=== PATIENT | male | born 1960 | race Caucasian/White ===

== ENCOUNTER 2017-09-08 16:30 | Emergency (ER) | payer SELFPAY ==
[~2017-09-08 16:30] MED LIST: ISOVUE-370 76%-LOCM 1 ML ONE
[2017-09-08 17:46] LABS: Hemoglobin 14.6 g/dL (14.0-18.0); Mean Corpuscular HGB CONC 33.6 g/dL (32.0-36.0); Mean Platelet Volume 8.3 fL (7.4-10.4); Platelet Count 141 thou/uL (130-400); RBC Distribution Width 13.1 % (11.5-14.5); Red Blood Cell (RBC) Count 4.44 mill/uL (4.70-6.10); White Blood Cell (WBC) Count 9.4 thou/uL (4.8-10.8)
[2017-09-08 17:47] LABS: INR-International Normal Ratio 1.1; PTT 28.3 SEC (22.9-36.1); Prothrombin Time 14.6 SEC (12.0-14.7)
[2017-09-08 18:03] LABS: ALT (SGPT) 200 U/L (8-55); AST (SGOT) 162 U/L (5-34); Albumin 3.9 g/dL (3.5-5.0); Alcohol 239 mg/dL (Less than 10); Alkaline Phosphatase 66 U/L (40-150); Anion Gap 16 mmol/L (10-20); BUN (Urea Nitrogen) 17 mg/dL (8.4-25.7); Bilirubin, Total 0.7 mg/dL (0.2-1.2); Calc. Creatinine Clearance 0 mL/min (70-130); Calcium 8.8 mg/dL (7.8-10.44); Carbon Dioxide 21 mmol/L (22-29); Chloride 107 mmol/L (98-107); Estimated GFR-MDRD Greater than 90; Globulin 3.6 g/dL (2.4-3.5); Glucose 84 mg/dL (70-105); Lipase 51 U/L (8-78); Potassium 3.7 mmol/L (3.5-5.1); Protein, Total 7.5 g/dL (6.0-8.3); Sodium 140 mmol/L (136-145)
[2017-09-08 18:04] LABS: Lymphocytes 72 % (21-51); MDiff Complete? YES; Macrocytosis SLIGHT = 6-15 cells (100X) (0-5/hpf); Monocytes 4 % (0-10); Neutrophil 19 % (42-75); PLT Morphology Comment Appears Adequate; Reactive Lymphocytes 5 % (0-10)
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
== END 2017-09-08 20:30 | disposition home or self-care (01) ==
LOC: ERS 16:30
DX: S02.2XXA Fracture of nasal bones, initial encounter for closed fracture (principal); S13.161A Dislocation of C5/C6 cervical vertebrae, initial encounter; S60.812A Abrasion of left wrist, initial encounter; S60.811A Abrasion of right wrist, initial encounter; F10.129 Alcohol abuse with intoxication, unspecified; F17.210 Nicotine dependence, cigarettes, uncomplicated; Y04.0XXA Assault by unarmed brawl or fight, initial encounter
CPT/HCPCS: 36415; 70450; 70486; 71260; 72125; 74177; 80053; 80307; 83690; 85025; 85610; 85730; 86850; 86900; 86901; 99406

== ENCOUNTER 2020-01-09 01:15 | Inpatient (IN) | payer OTHER, SELFPAY ==
[2020-01-09 01:57] LABS: #Basophils 0.1 thou/uL (0.0-0.2); #Eosinphils 0.2 thou/uL (0.0-0.7); #Lymphocytes 4.4 thou/uL (1.20-3.40); #Monocytes 1.5 thou/uL (0.11-0.59); #Neutrophils 5.3 thou/uL (1.40-6.50); %Basophils 1.1 % (0.0-1.0); %Eosinophils 1.3 % (0.0-10.0); %Lymphocytes 38.1 % (21.0-51.0); %Neutrophils 46.5 % (42.0-75.0); Hemoglobin 6.3 g/dL (14.0-18.0); Mean Corpuscular Volume 82.8 fL (78.0-98.0); Platelet Count 200 thou/uL (130-400); RBC Distribution Width 18.7 % (11.5-14.5); Red Blood Cell (RBC) Count 2.62 mill/uL (4.70-6.10); White Blood Cell (WBC) Count 11.4 thou/uL (4.8-10.8)
[2020-01-09 02:10] LABS: ALT (SGPT) 19 U/L (8-55); AST (SGOT) 43 U/L (5-34); Albumin 2.4 g/dL (3.5-5.0); Alcohol Less than 10 mg/dL (Less than 10); Alkaline Phosphatase 81 U/L (40-110); Anion Gap 12 mmol/L (10-20); BUN (Urea Nitrogen) 12 mg/dL (8.4-25.7); Bilirubin, Total 1.5 mg/dL (0.2-1.2); CK (CPK) 95 U/L (30-200); Calc. Creatinine Clearance 0 mL/min (70-130); Calcium 7.2 mg/dL (7.8-10.44); Carbon Dioxide 18 mmol/L (22-29); Chloride 105 mmol/L (98-107); Estimated GFR-MDRD Greater than 90; Globulin 4.1 g/dL (2.4-3.5); Glucose 106 mg/dL (70-105); Lipase 391 U/L (8-78); Potassium 3.9 mmol/L (3.5-5.1); Protein, Total 6.5 g/dL (6.0-8.3); Sodium 131 mmol/L (136-145)
[2020-01-09 02:21] LABS: INR-International Normal Ratio 1.7; PTT 29.2 sec (22.9-36.1)
--- NOTE | 2020-01-09 02:29 | PDOC.FPRHP ---
- History of Present Illness Chief Complaint: chest pain History of Present Illness: Pt is a 60 yo male with hx of EtOH and tobacco abuse who presents to ED with CP. Pain started around 9pm on 01/07. Described as "like a brick on my chest", located in center of chest and radiated to arms, started at rest, relieved by nitro paste given by EMS. Associated with nausea and SOB. Had one episode of similar pain a couple of weeks ago. Does not have a PCP and hasn't been to doctor in "years". C/o abdominal distention. This has gotten worse over past month. Social Hx: smokes 1/3ppd, has smoked since age 16 and used to smoke 1ppd. Drinks 4-6 beers/day since about 2 months ago, prior he drank 12 a day. ED Course: Given nitro paste, 325mg ASA, 1 unit pRBC - Allergies/Adverse Reactions Allergies Allergy/AdvReac Type Severity Reaction Status Date / Time No Known Allergies Allergy Unverified 01/09/20 03:26 - History PMHx: EtOH and tobacco abuse PSHx: none FHx: HTN, emphysema Social: see HPI - Review of Systems General: denies: fever/chills Eyes: denies: vision changes ENT: denies: nasal congestion Respiratory: reports: cough, shortness of breath Cardiovascular: reports: chest pain. denies: orthopnea Gastrointestinal: reports: nausea. denies: vomiting, diarrhea, abdominal pain, GI bleeding Skin: denies: rashes Musculoskeletal: denies: pain, tenderness Neurological: denies: numbness, syncope - Vital signs BP: 123/79, HR: 94, RR: 23, Temp: 98.3F, O2: 100% on RA - Physical Exam Constitutional: NAD HEENT: normocephalic and atraumatic, grossly normal vision, grossly normal hearing -HEENT: icteric sclera Neck: supple, no JVD Chest: no-tender to palpation Heart: RRR, normal S1/S2, pulses present -Heart: pitting edema of bilat LE up to knees Lungs: no respiratory distress -Lungs: wheezing bilateral lung patel -Abdomen: abdomen very distended, non-tender Neurological: no focal deficit -Skin: jaundice Psychiatric: normal mood and affect FMR H&P: Results - Labs Result Diagrams: 01/09/20 01:47 01/09/20 01:47 Lab results: WBC 11.4 thou/uL (4.8-10.8) H 01/09/20 01:47 Hgb 6.3 g/dL (14.0-18.0) L 01/09/20 01:47 Hct 21.7 % (42.0-52.0) L 01/09/20 01:47 MCV 82.8 fL (78.0-98.0) 01/09/20 01:47 Plt Count 200 thou/uL (130-400) 01/09/20 01:47 Neutrophils % 46.5 % (42.0-75.0) 01/09/20 01:47 Sodium 131 mmol/L (136-145) L 01/09/20 01:47 Potassium 3.9 mmol/L (3.5-5.1) 01/09/20 01:47 Chloride 105 mmol/L (98-107) 01/09/20 01:47 Carbon Dioxide 18 mmol/L (22-29) L 01/09/20 01:47 BUN 12 mg/dL (8.4-25.7) 01/09/20 01:47 Creatinine 0.79 mg/dL (0.7-1.3) 01/09/20 01:47 Glucose 106 mg/dL (70-105) H 01/09/20 01:47 Calcium 7.2 mg/dL (7.8-10.44) L 01/09/20 01:47 Total Bilirubin 1.5 mg/dL (0.2-1.2) H 01/09/20 01:47 AST 43 U/L (5-34) H 01/09/20 01:47 ALT 19 U/L (8-55) 01/09/20 01:47 Alkaline Phosphatase 81 U/L (40-110) 01/09/20 01:47 Creatine Kinase 95 U/L (30-200) 01/09/20 01:47 Serum Total Protein 6.5 g/dL (6.0-8.3) 01/09/20 01:47 Albumin 2.4 g/dL (3.5-5.0) L 01/09/20 01:47 Lipase 391 U/L (8-78) H 01/09/20 01:47 Laboratory Tests 01/09/20 01:47 CK-MB (CK-2) 7.6 H* Troponin I 0.964 H* FMR H&P: A/P - Plan #NSTEMI - CP at rest with SOB, hx of EtOH and tobacco abuse, no PCP - 325mg ASA given in ED - trop 0.96, will trend - ekg: no ST elevations, T wave inversions in V2 and V3, irregular rhythm - possible that CP and elevated trop could be due to inadequate oxgenation of tissue bc of severe anemia - will consult cardiology in am, NPO now - CP resolved with nitro, no JVD - VSS, continue to monitor - admit to tele #Anemia - H/H 6.3/21.7 - likely due to chronic disease process - denies diarrhea, melena, hematochezia - 1 unit pRBC ordered, repeat H/H 4 hours after #Abdominal Distention - likely due to EtOH induced chronic liver disease - PT 20, AST 43, T bili 1.5, Albumin 2.4, Na 131 - RUQ US ordered - lasix and spironolactone - fluid restrict, strict I/O's - consider paracentesis - consider GI consult #EtOH Abuse - ASE protocol - encourage cessation #Tobacco Abuse - nicotine patch - wheezing heard bilaterally, ordered duonebs - encourage cessation DVT ppx: SCDs IVF: Code: full Dispo: Admit inpatient, tele, stable, consult cards in am, LOS>48hours FMR H&P: Upper Level - Plan Date/Time: 01/09/20 0229 IAlpa MD, have evaluated this patient and agree with findings/plan as outlined by international trade analyst resident. Pertinent changes/additions are listed here. This is a 60yo M w/ hx of alcohol abuse who presents to the ER with CC of chest pain. States chest pain started at 930 pm while sitting in his living room watching TV. Described as "worst pain in life," pressure like. Radiated to neck and down both arms. Denies every having chest pain before. Endorsed nausea and SOB at the time. EMS gave Nitro paste when they arrived around 1230 am and he started to feel better. On exam in the ER he states his pain has totally resolved. He has not seen a doctor "in over 10 years." Has noticed his belly becoming more distended over the last month or so. Denies any belly pain at this time. He takes no medications. 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 He currently drinks 4 -6 beers/day, smokes 1/3 ppd. See international trade analyst note for full HPI and details. In the ER, patient given ASA. EKG showed no ST elevations. Trop found to be 0.96. Na 131. AST 43, Tbili 1.5. Lipase 391. Hgb 6.3. PE remarkable for distended abdomen, tense, tympanic, nontender. Irregular rhythm, no JVD, no TTP of ant chest. Exp wheezes on b/l lung patel. 2+ pitting edema to level of knees b/l. Will admit patient to tele, inpt for NSTEMI. Will trend troponins. No active chest pain. Nitro PRN. Will likely consult cardiology in the AM. HEART score of 6. Only given ASA for now. Holding off on anticoagulation due to anemia. FOBT pending. Likely NSTEMI due to anemia/demand. Will orally hydrate due to elevated lipase. Anemia -s/p 1 unit in the ER. Will get H/H 4hrs post transfusion. Give additional units as needed. Anemia likely 2/2 liver disease. Will get FOBT. Will get RUQ US due to elevated AST and hx of alcohol abuse. Likely need diagnostic paracentesis at some point. Will give spironolactone and furosemide to help with ascites and fluid overload. Consider GI consult. Likely has COPD - will give duonebs. Dispo: admit to tele, inpt Code: FULL PCP: [facility]OT Case to be discussed with Dr. Alvarado.
[2020-01-09 02:46] LABS: CKMB 7.6 ng/mL (0-6.6)
[2020-01-09] MEDS ORDERED: Ondansetron ODT 4 MG TAB PO PRN (03:02)
[2020-01-09] MEDS ORDERED: Ondansetron PF 4 MG/2 ML Vial IVP PRN (03:02)
[2020-01-09] MEDS ORDERED: Nitroglycerin 0.4 MG TAB (25 Tab Bottle) PO PRN (03:02)
[2020-01-09] MEDS ORDERED: Acetaminophen 325 MG TAB PO PRN (03:02)
[2020-01-09] MEDS ORDERED: Furosemide 40 MG TAB PO SCH (03:45)
[2020-01-09] MEDS ORDERED: Spironolactone 100 MG TAB PO SCH (03:45)
[2020-01-09 04:07] VITALS: BMI 25.3
[2020-01-09] MEDS: Nicotine 14 MG PATCH TD SCH (04:31)
[2020-01-09 05:12] LABS: Cardiac Risk 4.2 (Less than 4.5)
[2020-01-09 05:24] LABS: Troponin I 1.248 ng/mL (< 0.028)
[2020-01-09 05:29] LABS: HIV (1/2) Antibody/Antigen Non-Reactive (NonReactive); HIV 1/2 INDEX 0.14 S/CO (<1.00); Hep A IgM AB Non-Reactive (NonReactive); Hep A IgM S/CO 0.24 S/CO (0-0.79); Hep B Surf Ag Non-Reactive S/CO (NonReactive); Hepatitis B Core IgM Abs Non-Reactive (NonReactive)
[2020-01-09 05:39] LABS: Hep C IgG Ab Reflex HepC Qnt (NonReactive); Hep C Index 4.67 S/CO (0-0.79)
[2020-01-09 06:41] LABS: Syphilis Antibody Nonreactive (Nonreactive); Syphilis Antibody Index 0.23 S/CO (<1.00 Non-Reactive)
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
--- NOTE | 2020-01-09 07:50 | ULT ---
ULTRASOUND ABDOMEN COMPLETE: DATE: 01/09/2020 HISTORY: 60-year-old male with history of ethanol abuse presents with abdominal distention. TECHNIQUE: Grayscale ultrasound evaluation of the liver, gallbladder, spleen, pancreas, common duct, kidneys, ab dominal aorta, and inferior vena cava (IVC). FINDINGS: Moderate amount of free fluid in the abdominal cavity. Liver: lobular margins. Kidneys: No hydronephrosis. Spleen: No splenomegaly. Abdominal aorta: Obscured IVC: Not visualized. Pancreas: Mostly obscured. Gallbladder: No gallstones identified. Mural thickening up to 5 mm is nonspecific, and could be due t o liver disease, ascites, chronic cholecystitis, or acute cholecystitis. IMPRESSION: 1) moderate ascites. 2) hepatic cirrhosis.
[2020-01-09 08:01] LABS: Troponin I 1.645 ng/mL (< 0.028)
[2020-01-09] MEDS: Aspirin 325 mg Enteric Coated Tablet PO SCH (08:45)
[2020-01-09] MEDS ORDERED: Enoxaparin Sodium 80 MG/0.8 ML SYRINGE SC SCH (09:00)
[2020-01-09] MEDS ORDERED: Recombivax (HEP-B) 5 MCG/0.5 ML VIAL IM ONE (10:55)
[2020-01-09 12:06] LABS: Hemoglobin 7.6 g/dL (14.0-18.0); Reticulocyte Count 5.4 % (0.5-1.5)
[2020-01-09 12:23] LABS: Iron 21 ug/dL (65-175); Iron Binding Capacity, Total 343 mcg/dL (261-462)
[2020-01-09 12:27] LABS: Troponin I 2.215 ng/mL (< 0.028)
[2020-01-09 12:45] LABS: Ferritin 10.18 ng/mL (22-322)
[2020-01-09 14:49] LABS: Critical Call Chem Troponin I RESULT DECREASING; Troponin I 1.945 ng/mL (< 0.028)
--- NOTE | 2020-01-09 15:29 | RAD ---
TWO VIEW CHEST: 01/09/20 INDICATIONS: Follow-up portable film of 01/09/20 which described right paratracheal fullness. FINDINGS: The lungs appear clear. No infiltrate or vascular congestion. There continues to be increased density in the medial right upper lung along the paratracheal region. This overlies the first rib costochondral junction inhibiting evaluation. There is a calcified granu cedrick in the right apex which is stable. There are old rib fractures in the right apical region. Herat size is normal. There is mild blunting of the posterior gutters. IMPRESSION: Persistent density in the right paratracheal region. Suggest further evaluation with CT chest with co ntrast. POS: [facility]
--- NOTE | 2020-01-09 16:09 | CON ---
DATE OF CONSULTATION: 01/09/2020 INDICATIONS FOR CONSULTATION: This is a 60-year-old gentleman with a tsk-GZ-jsbbzgn elevation myocardial infarction. 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 He has a heavy alcohol and tobacco abuse. He has had no previous cardiac history that he is aware of. He noticed yesterday he started having chest pain while he was sitting on the sofa. He then went to bed, but then around midnight notes that the pain was worse. He became short of breath. He denied any other symptoms. He denied any radiation of the pain or any nausea or vomiting. He was seen by the EMS after he called EMS and he was given nitroglycerin. It did help the pain somewhat. He then presented here, and at approximately 2:00 a.m. this morning, his pain had resolved. His cardiac enzymes are positive for mgj-ZN-iwymdre elevation myocardial infarction. Troponin-I has increased from 1.6 up to 2.2 and his CPK-MB is 7.6, compatible with an OR and also ST-segment changes show ijg-JH-ewdfagv elevation myocardial infarction with T-wave inversions in anterior and lateral leads, compatible with ongoing ischemia likely. Unfortunately, at this moment, he also has significant cirrhosis of the liver apparently and has significant ascites. His hemoglobin was significantly decreased at 6.3. He has been given 1 unit of packed red blood cells and is now 7.6. His hematocrit was 21.7. His renal function appears to be normal. He denied any previous history of bleeding that he is aware of. He had no GI complaints of any blood in the stools, but he has not usually even evaluated the stools or pay attention and also his retic count was not significantly abnormal that would indicate bone marrow suppression. He does drink heavy amounts of alcohol. He used to drink up to 12 a day and now drinks about 4 to 6 a day. He has smoked since about age 16 up to a pack a day, is now decreased down to a 3rd of a pack a day. PAST MEDICAL HISTORY: Relatively unremarkable except for some illicit drug use and he did have some kind of GI obstruction when he was an early teenager. He had no surgical correction of this and otherwise he has had no significant illnesses or operations that he can remember. ALLERGIES: HE IS HAVING NO KNOWN ALLERGIES. ON ADMISSION, THE PATIENT HAD NOT BEEN TAKING ANY MEDICATIONS AND HAS NOT SEEN A DOCTOR FOR MANY YEARS. AT THIS TIME, HIS MEDICATIONS INCLUDE: 1. IPRATROPIUM/ALBUTEROL. 2. NICODERM PATCH. 3. ASPIRIN 325 MG A DAY, HE WAS GIVEN ONE DOSE. 4. LASIX, HE WAS GIVEN 40 MG IN THE EMERGENCY ROOM, I BELIEVE HE IS NOW BEING GIVEN P.O. LASIX 40 A DAY. 5. HE IS ALSO ON SPIRONOLACTONE 100 MG ONCE A DAY. 6. HE HAS ALSO BEEN GIVEN NITROGLYCERIN NEEDED. 7. OTHER P.R.N. MEDICATIONS. REVIEW OF SYSTEMS: A 12-point review of systems is unremarkable except what is noted in the history of present illness with recent onset of chest discomfort and also the abdominal bloating or distention for the last couple of weeks. He said he noticed it. HEENT: He denied any previous HEENT complaints. No visual changes. No blurred vision. PULMONARY: He had no pulmonary complaints, such as asthma, emphysema, bronchitis despite the significant amount of tobacco abuse. GI: He had no previous GI complaints, such as nausea, vomiting, or diarrhea. He has had no hematemesis. He has had no hematochezia. : He denied any urinary complaints of dysuria, polyuria, or hematuria. No nephrolithiasis. MUSCULOSKELETAL: He had no previous lower extremity edema, but does now complain of some mild edema, which has been ongoing also for the last few weeks. NEUROLOGIC: He had no history of seizures or syncope. PHYSICAL EXAMINATION: GENERAL: A thin gentleman who is in no acute distress at this time. VITAL SIGNS: He is afebrile, blood pressure is 109/70, heart rate is 95 and regular, respiratory rate 15, and O2 saturation 99%. HEENT: Shows the head to be normocephalic and atraumatic. Carotid pulses are present. I did not hear any bruits. CHEST: Actually clear to auscultation without rales, rhonchi, or wheezing. CARDIOVASCULAR: Regular rate and rhythm. There were no significant murmurs, heaves, thrills, bruits, or rubs. He did have a very soft systolic murmur at the apex, otherwise no significant abnormalities were noted. ABDOMEN: Distention with tympany. There is obviously fluid with ascites. I cannot palpate any masses, but significant distention. EXTREMITIES: No clubbing or cyanosis. He did have 1+ lower extremity edema in the lower legs. Pedal pulses are present. NEUROLOGIC: He appears to be intact. LABORATORY DATA: Hemoglobin of 6.3, which is increased up to 7.6 after being given 1 unit of blood; hematocrit was 21.7; platelet count was 200,000; and WBC was 11.4. Sodium was 131 with potassium of 3.9, bicarb was 18, BUN was 12, creatinine 0.79, and blood sugar was 106. His INR is 1.7. MB, I think I mentioned was 7.6. EKG shows a normal sinus rhythm with T-wave inversions in the anterior and lateral leads, compatible with probable ischemia. IMPRESSION: 1. A 60-year-old gentleman with yvc-FP-iyzpija elevation myocardial infarction. He is too high of a risk at this time to take to the cardiac lab specialist due to the anemia. We are uncertain as to why he is anemic, where the blood is coming from, but most likely has a slow ooze. We will need to treat him medically at this time. I will re-evaluate his medications. As long as his blood pressure is on the low side, he may not tolerate beta blockers. His heart rate is 95. Certainly could try a low dose of beta-mikey to see if this will help. In the meantime, he will need to be seen by the GI for most likely a paracentesis. Once he is more stable from his hepatic issues, then I would suggest he undergo cardiac catheterization as a more definitive tool to evaluate for underlying coronary artery disease in view of the EKG changes and abnormal cardiac enzymes with what sounds like typical ischemic changes and with long history of tobacco abuse. 2. Ascites and what appears to be liver cirrhosis. 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 Hopefully, some of his symptoms will improve once he has undergone paracentesis. 3. Heavy alcohol abuse. He will be advised to stop drinking. 4. Tobacco abuse. He will need to absolutely stop smoking. We will continue to follow the patient with you, but once he is more stable, then I would suggest a cardiac catheterization, most likely a stress test would not be adequate in this patient who already has symptoms of chest pain, which obviously appeared to be ischemia and also with his abnormal cardiac enzymes and abnormal EKG. Job ID: [id number]
--- NOTE | 2020-01-09 16:45 | PDOC.OP ---
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 Ramu Fagan ATTENDING PHYSICIAN: Dr. Stratton, In Attendance Percussion used to lara location CONSENT: Consent was obtained from Jose E Eniogeraldine prior to the procedure. Indications, risks, and benefits were explained at length. PROCEDURE SUMMARY: We used chlorhexidine scrub to clean the sub-umbilical/midline region. In sterile fashion, a 22 gauge needle was inserted at midline and advanced into the cavity with negative pressure until straw-colored fluid was aspirated. We collected 18-20cc of fluid and sent for laboratory analysis. The needle was removed and a bandaid was placed over the puncture wound. The patient tolerated the procedure well without any immediate complications.
[2020-01-09 17:34] LABS: Troponin I 1.974 ng/mL (< 0.028)
[2020-01-09 17:53] LABS: SARS-CoV-2 MS2 Positive; SARS-CoV-2 N Gene Negative; SARS-CoV-2 S Gene Negative; SARS-CoV-2 by NAA Not Detected (NotDetected); SARS-CoV-2 orf1ab Negative
[2020-01-09 23:11] LABS: Hemoglobin 8.7 g/dL (14.0-18.0)
--- NOTE | 2020-01-10 00:40 | CON ---
DATE OF CONSULTATION: 01/09/2020 CHIEF COMPLAINT: Chest pain. HISTORY OF PRESENT ILLNESS: Mr. Kathleen is a 60-year-old man who was admitted with chest pain and found to have a nth-LI-vkmaebmls FL on presentation. He is also found to have changes of cirrhosis on imaging and ascites and severe iron-deficiency anemia. About a month ago, he noticed that his abdomen started swelling. He has had no nausea or vomiting. No diarrhea or constipation or blood in the stool or abdominal pain. He had been drinking a 12-pack a day, but states he quit two months ago. GI was consulted to evaluate cirrhosis and ascites. He was evaluated by Cardiology for his elevated troponins and Dr. Degroot does recommend that he eventually get a heart catheterization, however, until the source of the bleeding is identified, she would not be able to intervene and use blood thinners and antiplatelets and recommends GI workup prior to heart catheterization. PAST MEDICAL HISTORY: Alcohol abuse and new diagnosis of cirrhosis. PAST SURGICAL HISTORY: Negative. FAMILY HISTORY: Negative for GI malignancy. SOCIAL HISTORY: He smokes up to a half a pack a day. He had been smoking a pack a day for decades prior to that. Alcohol, 12 pack a day up until a couple of months ago. No drugs. ALLERGIES: NO KNOWN DRUG ALLERGIES. MEDICATIONS: Currently as an inpatient include: 1. Aspirin. 2. Ferrous sulfate. 3. Furosemide 40 mg daily. 4. Spironolactone 100 mg daily. 5. Nicotine patch. REVIEW OF SYSTEMS: Negative x10 systems reviewed except as stated in the history of present illness. PHYSICAL EXAMINATION: VITAL SIGNS: Temperature 98.8, blood pressure 113/73, and pulse 113. GENERAL: He is in no acute distress. Alert and oriented x3. HEENT: Eyes have no scleral icterus. Oropharynx is clear without lesions. No cervical or supraclavicular lymphadenopathy. He has peripheral muscle wasting. No asterixis on neurological exam. LUNGS: Clear to auscultation bilaterally. HEART: Regular rate and rhythm without murmur. ABDOMEN: Distended with ascites, which is somewhat tense and he has shifting dullness. EXTREMITIES: 2+ pitting lower extremity edema. LABORATORY DATA: Bilirubin 1.5, AST 43, ALT 19, alkaline phosphatase 81. Troponin was 2.2. Albumin 2.4, lipase 391, iron 21, TIBC 343, and ferritin 10.1. Hepatitis C antibody was positive. Hepatitis B surface antigen was negative. Hepatitis B core IgM was negative. Hepatitis A IgM was negative. IMPRESSION: 1. Decompensated cirrhosis with elevated INR at 1.7, low albumin at 2.4, and ascites. His creatinine is normal. His bilirubin is mildly elevated at 1.5. This appears to be cirrhosis secondary to alcohol and hepatitis C; however, we need his hepatitis C RNA level to verify chronic infection. He states that he quit drinking alcohol 2 months ago. 2. Alcohol abuse. 3. Iron-deficiency anemia. His hemoglobin is 7.6 after 1 unit transfusion, 6.3 prior to transfusion. His platelets are normal at 200. His reticulocyte count is normal. On rectal exam, he just has light brown stool. There has been no acute overt bleed. He should have upper and lower endoscopy to evaluate bleeding source. Given that he has zcu-OY-pjdugtjki myocardial infarction now, we will start with upper endoscopy to assess for an obvious ulcer and for varices screening. We will plan this for tomorrow. 4. Kst-YG-wtmblrois myocardial infarction with mild elevation of the troponin secondary to his anemia. He is now receiving 2 units transfusion. RECOMMENDATIONS: 1. Diagnostic paracentesis with cell count and differential to rule out SBP. 2. We will start with upper endoscopy. Eventually, we will also require lower endoscopy for evaluation of iron-deficiency anemia. 3. For hepatoma screening, he has a negative alpha-fetoprotein. His ultrasound this morning did not show an obvious hepatic mass. Lobular margins are noted in the liver. 4. Check hepatitis B surface antibody and hepatitis A total antibody, and if these are negative, he should be vaccinated. 5. Regarding the ascites, he was counseled on a low-salt diet. He has been started on furosemide 40 mg daily and spironolactone 100 mg daily. We will need to monitor his renal function closely. Job ID: [id number]
[2020-01-10 04:45] LABS: RBC Count-Automated (BF) 414 /cu.mm; WBC/Nucleated-Auto (BF) 34 uL
[2020-01-10 04:49] LABS: Body Fluid Source Ascites Body Fluid; Clarity Hazy (Clear); Tube # EDTA
[2020-01-10 04:50] LABS: BF Color Yellow
[2020-01-10 04:55] LABS: #Basophils 0.2 thou/uL (0.0-0.2); #Eosinphils 0.1 thou/uL (0.0-0.7); #Lymphocytes 5.6 thou/uL (1.20-3.40); #Monocytes 1.4 thou/uL (0.11-0.59); #Neutrophils 6.7 thou/uL (1.40-6.50); %Basophils 1.4 % (0.0-1.0); %Lymphocytes 39.8 % (21.0-51.0); %Neutrophils 47.8 % (42.0-75.0); Hemoglobin 8.1 g/dL (14.0-18.0); Mean Corpuscular HGB CONC 30.7 g/dL (32.0-36.0); Mean Corpuscular Hemoglobin 25.6 pg (27.0-31.0); Mean Corpuscular Volume 83.5 fL (78.0-98.0); Platelet Count 167 thou/uL (130-400); RBC Distribution Width 17.8 % (11.5-14.5); Red Blood Cell (RBC) Count 3.17 mill/uL (4.70-6.10); White Blood Cell (WBC) Count 13.9 thou/uL (4.8-10.8)
[2020-01-10 05:08] LABS: ALT (SGPT) 17 U/L (8-55); AST (SGOT) 43 U/L (5-34); Albumin 2.4 g/dL (3.5-5.0); Alkaline Phosphatase 80 U/L (40-110); Anion Gap 12 mmol/L (10-20); BUN (Urea Nitrogen) 14 mg/dL (8.4-25.7); Bilirubin, Total 2.4 mg/dL (0.2-1.2); Calc. Creatinine Clearance 111 mL/min (70-130); Calcium 7.6 mg/dL (7.8-10.44); Carbon Dioxide 19 mmol/L (22-29); Chloride 104 mmol/L (98-107); Estimated GFR-MDRD 90; Glucose 98 mg/dL (70-105); Protein, Total 6.4 g/dL (6.0-8.3); Sodium 131 mmol/L (136-145)
[2020-01-10 05:25] LABS: HBSAB Concentration Less than 8.00 mIU/mL; Hep B Surf AB Non-Reactive (NonReactive)
[2020-01-10 05:52] LABS: BF Segmented Neutrophils 4 %; Cell Count Non Hematic 56 %; Lymphocytes 40 %
[2020-01-10] MEDS: Nicotine 14 MG PATCH TD SCH (06:21)
[2020-01-10 07:23] LABS: INR-International Normal Ratio 1.6; PTT 29.2 sec (22.9-36.1); Prothrombin Time 18.9 sec (12.0-14.7)
[2020-01-10] MEDS ORDERED: Ketamine 50 MG/ML (10ML VIAL) ONE (08:58)
[2020-01-10] MEDS ORDERED: Ondansetron HCl/PF 4 MG/2 ML Vial IVP PRN (09:36)
[2020-01-10] MEDS ORDERED: Pantoprazole 40 MG VIAL IVP ONE (10:15)
--- NOTE | 2020-01-10 10:19 | PDOC.FM ---
- Subjective Subjective: Patient feeling well, no acute concerns. Still feeling uncomfortable in his abdomen. - Objective Vital Signs & Weight: Vital Signs (12 hours) Temp Pulse Resp BP Pulse Ox 01/10/20 03:08 98.4 F 100 20 130/70 98 01/10/20 03:06 94 L 01/09/20 23:33 93 L Weight Weight 84.867 kg I&O: 01/09/20 01/10/20 01/11/20 06:59 06:59 06:59 Intake Total 0 480 Output Total 600 Balance 0 -120 Result Diagrams: 01/10/20 15:11 01/10/20 03:57 Phys Exam - Physical Examination Constitutional: NAD HEENT: moist MMs, sclera anicteric Respiratory: no wheezing, no rales, no rhonchi Cardiovascular: RRR, no significant murmur, no rub Gastrointestinal: soft, positive bowel sounds Significant distension, positive fluid wave Musculoskeletal: edema present 1+ edema Neurological: non-focal, moves all 4 limbs Dx/Plan - Plan Plan: #NSTEMI - CP at rest with SOB, hx of EtOH and tobacco abuse, no PCP - trop stable, elevated - ekg: no ST elevations, T wave inversions in V2 and V3, irregular rhythm - Cardiology consulted - Hgb >10 for cath - try to find source of bleed - low dose Coreg-3.125 -stop ASA #Anemia - H/H 6.3/21.7, received 1 unit on admission - likely due to chronic disease process - denies diarrhea, melena, hematochezia #Abdominal Distention - HCV+ with EtOH use - lasix and spironolactone - fluid restrict, strict I/O's - Paracentesis shows no culture so far - GI consulted - Scope today #EtOH Abuse - ASE protocol - encourage cessation #Tobacco Abuse - nicotine patch - encourage cessation DVT ppx: SCDs IVF: SL Code: full Dispo: LOS>48hours
[2020-01-10] MEDS ORDERED: Pantoprazole 40 MG VIAL IVP SCH ×2 (10:30→21:00)
[2020-01-10] MEDS: cefTRIAXone\\ROCEPHIN 1 GM in Sodium Chloride 0.9% 100 ML IVPB SCH (10:32)
[2020-01-10] MEDS: Ferrous Sulfate 325 MG TAB PO SCH (10:33)
[2020-01-10] MEDS: Aspirin 325 mg Enteric Coated Tablet PO SCH (10:33)
[2020-01-10] MEDS: Spironolactone 100 MG TAB PO SCH (10:33)
[2020-01-10] MEDS: Furosemide 40 MG TAB PO SCH (10:34)
[2020-01-10 11:11] LABS: Hematocrit 22.6 % (37.5-51.0); RBC Folate Test Component 1934 ng/mL (>498)
[2020-01-10] MEDS ORDERED: PROPOFOL 200 MG/20 ML VIAL ONE (11:20)
[2020-01-10] MEDS ORDERED: Recombivax (HEP-B) 5 MCG/0.5 ML VIAL IM ONE (12:54)
[2020-01-10] MEDS ORDERED: Hepatitis B Vaccine 10 MCG/0.5 ML SYR IM ONE (13:30)
[2020-01-10 15:20] LABS: Hemoglobin 8.3 g/dL (14.0-18.0)
--- NOTE | 2020-01-10 16:06 | OP ---
DATE OF PROCEDURE: 01/10/2020 PROCEDURE PERFORMED: Esophagogastroduodenoscopy with control of hemorrhage and biopsy. PREOPERATIVE DIAGNOSES: Iron deficiency anemia and cirrhosis. DESCRIPTION OF PROCEDURE: Informed consent was obtained from the patient. He was sedated with total intravenous anesthesia. Bite block was placed and the endoscope was advanced easily to the second portion of the duodenum and retroflexion was performed in the stomach. 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 He had an ulcer in the distal esophagus at the GE junction, which measured 1 cm and had a protuberant red visible vessel. This bled actively when touched. The vessel was cauterized with a 7-Ind[place] gold probe at 20 cesar with good hemostasis confirmed. There was a 2 to 3 cm hiatal hernia present. There was heme staining in the stomach indicating recent bleeding. The stomach was otherwise normal. The first and second portions of the duodenum were normal. IMPRESSION: 1. 1 cm ulcer in the distal esophagus with protruding red visible vessel that actively bled when touched. This was cauterized with a 7-[place] Gold Probe with good hemostasis achieved. 2. 2 to 3 cm hiatal hernia. 3. 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 4. Heme staining in the stomach indicating recent bleeding, but the stomach mucosa and duodenal mucosa were normal. RECOMMENDATIONS: 1. Proton pump inhibitor twice daily. 2. Repeat EGD in a month. 3. Alcohol abstinence. 4. Continue furosemide and spironolactone. 5. Low-salt diet. 6. Given that he has now demonstrated that he had more of an acute bleed in addition to apparent chronic bleed with iron deficiency anemia, I would go ahead and cover with antibiotics for prophylaxis for spontaneous bacterial peritonitis given his tense ascites. Job ID: [id number]
--- NOTE | 2020-01-10 17:07 | PRG ---
DATE OF SERVICE: 01/10/2020 Mr. Kathleen is scheduled for endoscopy given his profound anemia which was at least in part iron deficient. Further workup to depend on results of his endoscopy. He will also need a further cardiac workup once we have built his hemoglobin level to around 9 or 10. In the event clinically, he is stable and is continuing to undergo workup for his new onset ascites and cirrhosis. Job ID: [id number]
[2020-01-10] MEDS: Carvedilol 3.125 MG TAB PO SCH (17:09)
[2020-01-10] MEDS: Sodium Chloride 0.9% (PF) 10 ML VIAL FS PRN (20:41)
[2020-01-10] MEDS: Pantoprazole 40 MG VIAL IVP SCH (20:41)
[2020-01-11 04:18] LABS: #Basophils 0.1 thou/uL (0.0-0.2); #Eosinphils 0.2 thou/uL (0.0-0.7); #Lymphocytes 4.4 thou/uL (1.20-3.40); #Monocytes 1.4 thou/uL (0.11-0.59); #Neutrophils 4.8 thou/uL (1.40-6.50); %Basophils 1.3 % (0.0-1.0); %Eosinophils 2.1 % (0.0-10.0); %Monocytes 12.6 % (0.0-10.0); %Neutrophils 44.1 % (42.0-75.0); Mean Corpuscular HGB CONC 31.1 g/dL (32.0-36.0); Mean Corpuscular Hemoglobin 25.9 pg (27.0-31.0); Mean Corpuscular Volume 83.3 fL (78.0-98.0); Mean Platelet Volume 9.2 fL (7.4-10.4); Platelet Count 154 thou/uL (130-400); RBC Distribution Width 18.2 % (11.5-14.5); Red Blood Cell (RBC) Count 3.07 mill/uL (4.70-6.10)
[2020-01-11 04:24] LABS: INR-International Normal Ratio 1.7; PTT 29.8 sec (22.9-36.1); Prothrombin Time 19.6 sec (12.0-14.7)
[2020-01-11 05:00] LABS: ALT (SGPT) 16 U/L (8-55); AST (SGOT) 36 U/L (5-34); Albumin 2.2 g/dL (3.5-5.0); Alkaline Phosphatase 70 U/L (40-110); Anion Gap 10 mmol/L (10-20); BUN (Urea Nitrogen) 14 mg/dL (8.4-25.7); Bilirubin, Total 1.7 mg/dL (0.2-1.2); Calc. Creatinine Clearance 121 mL/min (70-130); Calcium 7.5 mg/dL (7.8-10.44); Carbon Dioxide 21 mmol/L (22-29); Chloride 104 mmol/L (98-107); Estimated GFR-MDRD Greater than 90; Globulin 3.8 g/dL (2.4-3.5); Glucose 94 mg/dL (70-105); Potassium 4.2 mmol/L (3.5-5.1); Sodium 131 mmol/L (136-145)
[2020-01-11] MEDS: Nicotine 14 MG PATCH TD SCH (05:13)
--- NOTE | 2020-01-11 05:26 | PDOC.FM ---
- Subjective Subjective: Patient is doing well this morning. He says he is hungry and wants breakfast. He has no complaints. - Objective Vital Signs & Weight: Vital Signs (12 hours) Temp Pulse Resp BP Pulse Ox 01/11/20 04:00 98.4 F 80 18 104/61 95 01/11/20 00:00 98.3 F 101 H 18 128/76 98 01/10/20 20:00 97 01/10/20 19:21 98.1 F 98 20 122/76 97 01/10/20 19:13 94 L Weight Weight 84.867 kg I&O: 01/09/20 01/10/20 01/11/20 06:59 06:59 06:59 Intake Total 0 480 Output Total 600 Balance 0 -120 Result Diagrams: 01/11/20 04:05 01/11/20 04:05 EKG Reviewed by me: Yes (sinus rhythm) Phys Exam - Physical Examination Constitutional: NAD HEENT: moist MMs, sclera anicteric Neck: no JVD, full ROM expiratory wheezing bilaterally Cardiovascular: RRR, no significant murmur Gastrointestinal: non-tender significant distention, positive fluid wave 2+ LE edema bilaterally Neurological: moves all 4 limbs Psychiatric: normal affect, A&O x 3 Dx/Plan - Plan Plan: #NSTEMI - CP at rest with SOB, hx of EtOH and tobacco abuse, no PCP - trop stable, elevated - ekg: no ST elevations, T wave inversions in V2 and V3, irregular rhythm - sinus rhythm on telemetry monitoring - Cardiology consulted - Hgb >10 for cath - try to find source of bleed - low dose Coreg-3.125 -stop ASA #Anemia - H/H 6.3/21.7 --> 8/25.6 s/p 2U pRBC - evidence of acute bleed on EGD in addition to chronic source of anemia - denies diarrhea, melena, hematochezia #Abdominal Distention - HCV+ with EtOH use - lasix and spironolactone - fluid restrict, strict I/O's - Paracentesis culture negative - GI consult - Endoscopy: 1cm ulcer in distal esophagus (cauterized), hiatal hernia, heme stained stomach, erosive esophagitis - biopsy taken, results pending - PPI BID, abx (rocephin) for SBT prophylaxis #EtOH Abuse - ASE protocol - encourage cessation #Tobacco Abuse - nicotine patch - encourage cessation DVT ppx: SCDs IVF: SL Code: full Dispo: LOS>48hours. Addendum - Attending - Attending Attestation Date/Time: 01/11/20 [id number] I personally evaluated the patient and discussed the management with Dr. Vides. I agree with the History, Examination, Assessment and Plan documented above with any addition or exceptions noted below. The patient's hb is stable at 8. Will monitor for signs of bleeding. Awaiting biopsy results from EGD. Diagnostic tap negative for sbp. Pt's abdomen is distended. Plans of therapeutic tap in 2 days. Appreciate specialist recs. No heart cath at this point as he would not be able to have anticoagulation.
[2020-01-11] MEDS: Pantoprazole 40 MG VIAL IVP SCH ×2 (07:59→20:30)
[2020-01-11] MEDS: Carvedilol 3.125 MG TAB PO SCH ×2 (08:00→16:28)
[2020-01-11] MEDS: Ferrous Sulfate 325 MG TAB PO SCH (08:00)
[2020-01-11] MEDS: Furosemide 40 MG TAB PO SCH (08:00)
[2020-01-11] MEDS: Spironolactone 100 MG TAB PO SCH (08:00)
[2020-01-11] MEDS: cefTRIAXone\\ROCEPHIN 1 GM in Sodium Chloride 0.9% 100 ML IVPB SCH (10:58)
[2020-01-11 11:37] LABS: HCV log10 3.937 (.); Hep C PCR-Quant 8650 IU/mL (.)
--- NOTE | 2020-01-11 11:55 | EKG ---
Test Reason : CHEST PAIN Blood Pressure : / mmHG Vent. Rate : 098 BPM Atrial Rate : 098 BPM P-R Int : 094 ms QRS Dur : 080 ms QT Int : 328 ms P-R-T Axes : 091 040 192 degrees QTc Int : 418 ms Sinus rhythm with short AR with Premature supraventricular complexes Abnormal ECG Confirmed by ANJANA WESTON ([id number]), editor & co founder DAYNE NAIDU ([id number]) on 01/11/2020 11:55:29 AM Referred By: Confirmed By:ANJANA WESTON
--- NOTE | 2020-01-11 13:33 | PRG ---
DATE OF SERVICE: 01/11/2020 SUBJECTIVE: Mr. Kathleen has had no further overt bleeding today. He had a small bowel movement which was nonbloody. No nausea or vomiting. He does have abdominal distention from his ascites and has had some leakage from his diagnostic paracentesis site. IMPRESSION: 1. Severe erosive esophagitis with active bleeding, status post cautery of a visible vessel with an esophageal ulcer. 2. Anemia of acute blood loss. He has received 2 units transfusion on 01/08. Hemoglobin today is stable at 8.0. 3. Ascites. Diagnostic paracentesis is negative for spontaneous bacterial peritonitis. He has been started on diuretics and a low-salt diet. Now that his ascites is really his primary concern as far as his comfort level, I think it would be reasonable to do a therapeutic tap. This can be done Monday by Interventional Radiology with maximum 6 L removed. He will need to receive 25 g of albumin for every 3 L removed. 4. Non ST-elevation myocardial infarction. He just had a visible vessel cauterized in his esophagus. He will need to continue on IV proton pump inhibitor. This does carry a risk for rebleeding. We can follow the trend of his hemoglobin over the next couple of days on a PPI. 5. Chronic hepatitis C. Job ID: [id number]
--- NOTE | 2020-01-11 15:41 | PDOC.CPN ---
- Subjective Date: 01/11/20 Time: 15:39 Interval history: He is doing well. He denies chest pain, tightness, pressure. His abdomen is very very distended and makes him feel SOB and it hurts. - Review of Systems General: denies: fever/chills, weight/appetite/sleep changes, night sweats, fatigue Respiratory: denies: cough, congestion, shortness of breath, exercise intolerance Cardiovascular: denies: chest pain, palpitation, edema, paroxysmal nocturnal dyspnea, orthopnea Gastrointestinal: denies: nausea, vomiting, diarrhea, constipation, abd pain, GI bleeding Musculoskeletal: denies: pain, tenderness, stiffness, swelling, arthritis/ arthralgias Neurological: denies: numbness, syncope, seizure, weakness - Objective Allergies/Adverse Reactions: Allergies Allergy/AdvReac Type Severity Reaction Status Date / Time No Known Allergies Allergy Verified 01/09/20 04:07 Visit Medications: Current Medications Acetaminophen (Tylenol) 650 mg PO Q4H PRN PRN Reason: Headache/Fever/Mild Pain (1-3) Albuterol/Ipratropium (Duoneb) 3 ml NEB [id number] [facility] Last Admin: 01/11/20 15:22 Dose: 3 ml Carvedilol (Coreg) 3.125 mg PO BID-[facility] Last Admin: 01/11/20 08:00 Dose: 3.125 mg Ferrous Sulfate (Feosol) 325 mg PO QAM-[facility] Last Admin: 01/11/20 08:00 Dose: 325 mg Furosemide (Lasix) 40 mg PO DAILY-[facility] Last Admin: 01/11/20 08:00 Dose: 40 mg Ceftriaxone Sodium 1 gm/ (Sodium Chloride) 100 mls @ 200 mls/hr IVPB Q24HR [facility] Last Admin: 01/11/20 10:58 Dose: 100 mls Nicotine (Nicoderm Patch) 14 mg TD Q24HR [facility] Last Admin: 01/11/20 05:13 Dose: 14 mg Nitroglycerin (Nitrostat) 0.4 mg PO Q5MIN PRN PRN Reason: Chest Pain Ondansetron HCl (Zofran Odt) 4 mg PO Q6H PRN PRN Reason: Nausea/Vomiting Ondansetron HCl (Zofran) 4 mg IVP Q6H PRN PRN Reason: Nausea/Vomiting Pantoprazole Sodium (Protonix) 40 mg IVP Q12HR [facility] Last Admin: 01/11/20 07:59 Dose: 40 mg Sodium Chloride (Flush - Normal Saline) 10 ml IVF PRN PRN PRN Reason: Saline Flush Last Admin: 01/11/20 07:59 Dose: 10 ml Sodium Chloride (Normal Saline Pf) 10 ml FS PRN PRN PRN Reason: RECONSTITUTION Last Admin: 01/10/20 20:41 Dose: 10 ml Spironolactone (Aldactone) 100 mg PO QAM-WM [facility] Last Admin: 01/11/20 08:00 Dose: 100 mg Vital Signs & Weight: Vital Signs Temp Pulse Resp BP Pulse Ox 01/11/20 15:22 76 16 01/11/20 15:16 98.1 F 75 18 97/59 L 99 01/11/20 11:02 97.6 F 80 18 94/57 L 99 01/11/20 10:39 79 12 01/11/20 07:48 97.7 F 75 18 118/72 98 01/11/20 04:00 98.4 F 80 18 104/61 95 Weight 187 lb 1.6 oz - Physical Exam General: alert & oriented x3 HEENT: mucus membranes moist Neck: supple neck Cardiac: regular rate and rhythm Lungs: clear to auscultation Neuro: grossly intact Abdomen: distended, ascites Extremities: no edema Skin: clear Musculoskeletal: normal range of motion - Labs Result Diagrams: 01/11/20 04:05 01/11/20 04:05 Troponin/CKMB CK-MB (CK-2) 7.6 ng/mL (0-6.6) H* 01/09/20 01:47 Troponin I 1.974 ng/mL (< 0.028) H* 01/09/20 16:53 - Telemetry Sinus rhythms and dysrhythmias: sinus rhythm - Assessment/Plan Assessment/Plan: 1. NSTEMI 2. Ascitis 3. Anemia 4. Heavy alcohol use 5. Liver coirrhosis 6. Tobacco use PLAN: - Hgb better. - Not stable for [facility] at this time given severe ascitis and need for drainage and cannot lay flat. - Remain on [facility] for now.
[2020-01-11] MEDS: Sodium Chloride 0.9% (PF) 10 ML VIAL FS PRN (20:31)
[2020-01-12 04:26] LABS: #Basophils 0.1 thou/uL (0.0-0.2); #Eosinphils 0.2 thou/uL (0.0-0.7); #Monocytes 1.4 thou/uL (0.11-0.59); %Eosinophils 1.6 % (0.0-10.0); %Lymphocytes 41.5 % (21.0-51.0); %Monocytes 14.3 % (0.0-10.0); %Neutrophils 41.7 % (42.0-75.0); Hemoglobin 7.8 g/dL (14.0-18.0); Mean Corpuscular HGB CONC 30.4 g/dL (32.0-36.0); Mean Corpuscular Hemoglobin 25.3 pg (27.0-31.0); Mean Corpuscular Volume 83.3 fL (78.0-98.0); Mean Platelet Volume 9.7 fL (7.4-10.4); Platelet Count 165 thou/uL (130-400); RBC Distribution Width 18.9 % (11.5-14.5); Red Blood Cell (RBC) Count 3.07 mill/uL (4.70-6.10); White Blood Cell (WBC) Count 9.7 thou/uL (4.8-10.8)
[2020-01-12 04:48] LABS: PTT 28.5 sec (22.9-36.1)
[2020-01-12 04:49] LABS: INR-International Normal Ratio 1.6; Prothrombin Time 19.4 sec (12.0-14.7)
[2020-01-12 04:52] LABS: ALT (SGPT) 15 U/L (8-55); AST (SGOT) 34 U/L (5-34); Albumin 2.3 g/dL (3.5-5.0); Alkaline Phosphatase 70 U/L (40-110); Anion Gap 9 mmol/L (10-20); BUN (Urea Nitrogen) 16 mg/dL (8.4-25.7); Bilirubin, Total 1.3 mg/dL (0.2-1.2); Calc. Creatinine Clearance 116 mL/min (70-130); Calcium 7.6 mg/dL (7.8-10.44); Carbon Dioxide 22 mmol/L (22-29); Chloride 105 mmol/L (98-107); Estimated GFR-MDRD Greater than 90; Globulin 3.9 g/dL (2.4-3.5); Glucose 104 mg/dL (70-105); Potassium 4.3 mmol/L (3.5-5.1); Protein, Total 6.2 g/dL (6.0-8.3); Sodium 132 mmol/L (136-145)
--- NOTE | 2020-01-12 05:48 | PDOC.FM ---
- Subjective Subjective: Mr. Kathleen complains of a "tight belly" this morning explaining it is causing him discomfort down to his groin. Otherwise he has no complaints and is looking forward to breakfast. - Objective Vital Signs & Weight: Vital Signs (12 hours) Temp Pulse Resp BP Pulse Ox 01/12/20 04:00 97.9 F 86 20 102/54 L 97 01/12/20 00:00 98.3 F 86 18 124/76 97 01/11/20 20:00 97 01/11/20 19:21 98.4 F 87 16 101/64 97 01/11/20 19:00 94 L Weight Weight 84.867 kg I&O: 01/10/20 01/11/20 01/12/20 06:59 06:59 06:59 Intake Total 480 400 Output Total 600 500 400 Balance -120 -100 -400 Result Diagrams: 01/12/20 04:10 01/12/20 04:10 EKG Reviewed by me: Yes (tele: SR 80-90s) Phys Exam - Physical Examination Constitutional: NAD HEENT: moist MMs, sclera anicteric Neck: no JVD, full ROM expiratory wheezing bilaterally Cardiovascular: RRR, no significant murmur Gastrointestinal: non-tender significant distention, positive fluid wave Musculoskeletal: pulses present 2+ LE edema bilaterally Neurological: moves all 4 limbs Psychiatric: normal affect, A&O x 3 Dx/Plan - Plan Plan: #NSTEMI - CP at rest with SOB, hx of EtOH and tobacco abuse, no PCP - trop stable, elevated - ekg: no ST elevations, T wave inversions in V2 and V3, irregular rhythm - sinus rhythm on telemetry monitoring - Cardiology consulted - Hgb >10 for cath - low dose Coreg-3.125 - not eligible for cath because he can't lie flat with ascites -stop ASA #Anemia - 8>7.8 - s/p 2UpRBC - evidence of acute bleed on EGD s/p cauterization in addition to chronic source of anemia - denies diarrhea, melena, hematochezia #Abdominal Distention - HCV+ with EtOH use - lasix and spironolactone - fluid restrict, strict I/O's - Paracentesis culture negative - GI consult - Endoscopy: 1cm ulcer in distal esophagus (cauterized), hiatal hernia, heme stained stomach, erosive esophagitis - biopsy taken, results pending - PPI BID, abx (rocephin) for SBT prophylaxis - therapeutic tap w/ IR on Monday, 6L max, 25mg albumin per every 3L removed #EtOH Abuse - ASE protocol - encourage cessation #Tobacco Abuse - nicotine patch - encourage cessation DVT ppx: SCDs IVF: SL Code: full Dispo: LOS>48hours. Addendum - Attending - Attending Attestation Date/Time: 01/12/20 1311 I personally evaluated the patient and discussed the management with Dr. Vides. I agree with the History, Examination, Assessment and Plan documented above with any addition or exceptions noted below. Pt's abdomen is very distended. Will have IR guided paracentesis tomorrow. Pt is being transfused 1 liter today after 2 dark stools. Appreciate GI recs.
[2020-01-12] MEDS: Nicotine 14 MG PATCH TD SCH (07:09)
[2020-01-12] MEDS: Carvedilol 3.125 MG TAB PO SCH ×2 (08:19→16:35)
[2020-01-12] MEDS: Spironolactone 100 MG TAB PO SCH (09:18)
[2020-01-12] MEDS: Furosemide 40 MG TAB PO SCH (09:18)
[2020-01-12] MEDS: Ferrous Sulfate 325 MG TAB PO SCH (09:18)
[2020-01-12] MEDS: Pantoprazole 40 MG VIAL IVP SCH ×2 (09:19→20:52)
[2020-01-12] MEDS: cefTRIAXone\\ROCEPHIN 1 GM in Sodium Chloride 0.9% 100 ML IVPB SCH (09:27)
--- NOTE | 2020-01-12 13:08 | PRG ---
DATE OF SERVICE: 01/12/2020 SUBJECTIVE: Mr. Kathleen has increased discomfort in his abdomen from the ascites. He did pass 2 dark stools this morning. OBJECTIVE: VITAL SIGNS: Temperature 97.3, pulse 99, and blood pressure 129/63. GENERAL: He is in no acute distress. Alert and oriented x3. EYES: Have no scleral icterus. Oropharynx is clear without lesions. NECK: No cervical or supraclavicular lymphadenopathy. LUNGS: Clear to auscultation bilaterally. HEART: Regular rate and rhythm without murmur. ABDOMEN: Distended with ascites. Bowel sounds are present. EXTREMITIES: 2+ pitting lower extremity edema. IMPRESSION: 1. End-stage liver disease, decompensated. 2. Distal esophageal ulcer with acute hemorrhage, status post electrocautery of a visible vessel. 3. Anemia of acute blood loss. His hemoglobin has been stable. Given the recent non-ST elevation myocardial infarction, I will give him a unit of blood today. 4. Tense ascites. This is a primary complaint now. His fluid was negative for SBP. We will arrange ultrasound-guided paracentesis by Interventional Radiology for tomorrow. He can have up to 6 L removed with 25 g of albumin for each 3 L removed. 5. Chronic hepatitis C. 6. Non-ST elevation myocardial infarction. RECOMMENDATIONS: 1. Transfuse 1 unit today. 2. Ultrasound-guided paracentesis tomorrow. 3. Low-sodium diet. Job ID: [id number]
--- NOTE | 2020-01-12 17:08 | PDOC.CPN ---
- Subjective Date: 01/12/20 Time: 17:06 Interval history: No angina, no SOB. Still abdominal pain from tense ascitis. - Review of Systems General: denies: fever/chills, weight/appetite/sleep changes, night sweats, fatigue Respiratory: denies: cough, congestion, shortness of breath, exercise intolerance Cardiovascular: denies: chest pain, palpitation, edema, paroxysmal nocturnal dyspnea, orthopnea Gastrointestinal: denies: nausea, vomiting, diarrhea, constipation, abd pain, GI bleeding Musculoskeletal: denies: pain, tenderness, stiffness, swelling, arthritis/ arthralgias Neurological: denies: numbness, syncope, seizure, weakness - Objective Allergies/Adverse Reactions: Allergies Allergy/AdvReac Type Severity Reaction Status Date / Time No Known Allergies Allergy Verified 01/09/20 04:07 Visit Medications: Current Medications Acetaminophen (Tylenol) 650 mg PO Q4H PRN PRN Reason: Headache/Fever/Mild Pain (1-3) Albumin Human (Albumin 25%) 50 gm IVPB [facility] Stop: 01/13/20 18:00 Albuterol/Ipratropium (Duoneb) 3 ml NEB [id number] Last Admin: 01/12/20 15:04 Dose: 3 ml Carvedilol (Coreg) 3.125 mg PO BID-[facility] Last Admin: 01/12/20 16:35 Dose: Not Given Ferrous Sulfate (Feosol) 325 mg PO QAM-[facility] Last Admin: 01/12/20 09:18 Dose: 325 mg Furosemide (Lasix) 40 mg PO DAILY-[facility] Last Admin: 01/12/20 09:18 Dose: 40 mg Ceftriaxone Sodium 1 gm/ (Sodium Chloride) 100 mls @ 200 mls/hr IVPB Q24HR [facility] Last Admin: 01/12/20 09:27 Dose: 100 mls Nicotine (Nicoderm Patch) 14 mg TD Q24HR [facility] Last Admin: 01/12/20 07:09 Dose: 14 mg Nitroglycerin (Nitrostat) 0.4 mg PO Q5MIN PRN PRN Reason: Chest Pain Ondansetron HCl (Zofran Odt) 4 mg PO Q6H PRN PRN Reason: Nausea/Vomiting Ondansetron HCl (Zofran) 4 mg IVP Q6H PRN PRN Reason: Nausea/Vomiting Pantoprazole Sodium (Protonix) 40 mg IVP Q12HR [facility] Last Admin: 01/12/20 09:19 Dose: 40 mg Sodium Chloride (Flush - Normal Saline) 10 ml IVF PRN PRN PRN Reason: Saline Flush Last Admin: 01/12/20 09:19 Dose: 10 ml Sodium Chloride (Normal Saline Pf) 10 ml FS PRN PRN PRN Reason: RECONSTITUTION Last Admin: 01/11/20 20:31 Dose: 10 ml Spironolactone (Aldactone) 100 mg PO QAM-WM [facility] Last Admin: 01/12/20 09:18 Dose: 100 mg Vital Signs & Weight: Vital Signs Temp Pulse Pulse Resp BP BP Pulse Ox 01/12/20 16:08 98.7 F 83 20 104/60 01/12/20 15:53 98.6 F 81 20 116/64 01/12/20 15:05 97.6 F 84 18 118/80 99 01/12/20 15:04 78 18 01/12/20 11:53 97.3 F L 99 18 129/63 100 01/12/20 07:46 79 16 94 L 01/12/20 07:06 98.0 F 81 20 109/57 L 94 L Weight 187 lb 1.6 oz - Physical Exam General: alert & oriented x3 HEENT: mucus membranes moist Neck: supple neck Cardiac: regular rate and rhythm Lungs: normal breath sounds Neuro: grossly intact Abdomen: distended, ascites Extremities: no edema Skin: clear Musculoskeletal: no pain - Labs Result Diagrams: 01/12/20 04:10 01/12/20 04:10 Troponin/CKMB CK-MB (CK-2) 7.6 ng/mL (0-6.6) H* 01/09/20 01:47 Troponin I 1.974 ng/mL (< 0.028) H* 01/09/20 16:53 - Telemetry Sinus rhythms and dysrhythmias: sinus rhythm - Assessment/Plan Assessment/Plan: 1. NSTEMI 2. Ascitis 3. Anemia 4. Heavy alcohol use 5. Liver coirrhosis 6. Tobacco use PLAN: - Hgb improved but sitll low. - Not stable for [facility] at this time given severe ascitis and need for drainage and cannot lay flat. - No anticoagulation due to severe anemia and need to do paracentesis. - Dr. Degroot will follow tomorrow.
[2020-01-13 05:12] LABS: INR-International Normal Ratio 1.5; PTT 28.8 sec (22.9-36.1); Prothrombin Time 18.3 sec (12.0-14.7)
[2020-01-13 05:26] LABS: ALT (SGPT) 15 U/L (8-55); AST (SGOT) 38 U/L (5-34); Albumin 2.3 g/dL (3.5-5.0); Alkaline Phosphatase 78 U/L (40-110); Anion Gap 10 mmol/L (10-20); BUN (Urea Nitrogen) 16 mg/dL (8.4-25.7); Bilirubin, Total 1.7 mg/dL (0.2-1.2); Calc. Creatinine Clearance 104 mL/min (70-130); Calcium 7.7 mg/dL (7.8-10.44); Carbon Dioxide 23 mmol/L (22-29); Chloride 106 mmol/L (98-107); Estimated GFR-MDRD 83; Glucose 109 mg/dL (70-105); Protein, Total 6.3 g/dL (6.0-8.3); Sodium 135 mmol/L (136-145)
--- NOTE | 2020-01-13 05:44 | PDOC.FM ---
- Subjective Subjective: Patient reports that he is having more swelling in his lower extremities. He has been trying to limit fluid intake. He also reports dry throat. Answered some questions about his paracentesis. - Objective MAR Reviewed: Yes Vital Signs & Weight: Vital Signs (12 hours) Temp Pulse Pulse Resp BP BP Pulse Ox 01/13/20 03:30 99.2 F 99 20 112/68 99 01/12/20 20:00 98.3 F 85 17 113/72 100 01/12/20 18:39 96 01/12/20 18:35 98.9 F 90 20 119/73 Weight Weight 84.867 kg I&O: 01/11/20 01/12/20 01/13/20 06:59 06:59 06:59 Intake Total 400 1330 Output Total 500 400 300 Balance -100 -400 1030 Result Diagrams: 01/13/20 04:42 01/13/20 04:42 Phys Exam - Physical Examination Constitutional: NAD HEENT: moist MMs, sclera anicteric Respiratory: no wheezing, no rales, no rhonchi, clear to auscultation bilateral Cardiovascular: RRR, no significant murmur, no rub Gastrointestinal: soft, positive bowel sounds significant distension, mild diffuse tenderness Musculoskeletal: pulses present 2+ pitting edema Neurological: non-focal, moves all 4 limbs Psychiatric: normal affect, A&O x 3 Dx/Plan - Plan Plan: #NSTEMI - CP at rest with SOB, hx of EtOH and tobacco abuse, no PCP - trop stable, elevated - Admission ekg: no ST elevations, T wave inversions in V2 and V3, irregular rhythm - sinus rhythm on telemetry monitoring - Cardiology consulted - Hgb >10 for cath - low dose Coreg-3.125 - not eligible for cath because he can't lie flat with ascites -stop ASA #Anemia - stable near 8 - s/p 3UpRBC - evidence of acute bleed on EGD s/p cauterization in addition to chronic source of anemia - denies diarrhea, melena, hematochezia #Abdominal Distention - HCV+ with EtOH use - lasix and spironolactone - fluid restrict, strict I/O's - Paracentesis culture negative - GI consult - Endoscopy: 1cm ulcer in distal esophagus (cauterized), hiatal hernia, heme stained stomach, erosive esophagitis - biopsy taken, results pending - PPI BID, abx (rocephin) for SBT prophylaxis - therapeutic tap w/ IR today, 6L max, 25mg albumin per every 3L removed #EtOH Abuse - ASE protocol - encourage cessation #Tobacco Abuse - nicotine patch - encourage cessation DVT ppx: SCDs IVF: SL Code: full Dispo: LOS>48hours. Addendum - Attending - Attending Attestation Date/Time: 01/13/20 1098 I personally evaluated the patient and discussed the management with Dr. Camarena. I agree with the History, Examination, Assessment and Plan documented above with any addition or exceptions noted below. Patient stable. He is going for paracentesis today. GI and Cardiology on board, awaiting further recommendations. H/H stable. INR stable.
[2020-01-13 05:47] LABS: Hemoglobin 8.3 g/dL (14.0-18.0); Mean Corpuscular HGB CONC 30.9 g/dL (32.0-36.0); Mean Corpuscular Hemoglobin 25.8 pg (27.0-31.0); Mean Corpuscular Volume 83.3 fL (78.0-98.0); Mean Platelet Volume 9.7 fL (7.4-10.4); Platelet Count 146 thou/uL (130-400); RBC Distribution Width 18.8 % (11.5-14.5); Red Blood Cell (RBC) Count 3.23 mill/uL (4.70-6.10); White Blood Cell (WBC) Count 9.3 thou/uL (4.8-10.8)
[2020-01-13 05:51] LABS: Band 2 % (5-11); Eosinophils 2 % (0-10); Lymphocytes 25 % (21-51); MDiff Complete? YES; Monocytes 12 % (0-10); Neutrophil 59 % (42-75)
[2020-01-13] MEDS ORDERED: Albumin 25% 25 GM/100 ML BOT IVPB SCH (06:00)
[2020-01-13] MEDS: Nicotine 14 MG PATCH TD SCH (06:04)
[2020-01-13] MEDS: Carvedilol 3.125 MG TAB PO SCH ×2 (08:10→20:31)
--- NOTE | 2020-01-13 08:26 | PDOC.CPN ---
- Subjective Date: 01/13/20 Time: 08:00 Interval history: The pt seen and examined. No overnight events. No cardiac complaints. Only complaint he has at this moment is discomfort 2/2 distended ABD. - Objective Allergies/Adverse Reactions: Allergies Allergy/AdvReac Type Severity Reaction Status Date / Time No Known Allergies Allergy Verified 01/09/20 04:07 Visit Medications: Current Medications Acetaminophen (Tylenol) 650 mg PO Q4H PRN PRN Reason: Headache/Fever/Mild Pain (1-3) Albumin Human (Albumin 25%) 50 gm IVPB [facility] Stop: 01/13/20 18:00 Albuterol/Ipratropium (Duoneb) 3 ml NEB [id number] [facility] Last Admin: 01/13/20 07:59 Dose: 3 ml Carvedilol (Coreg) 3.125 mg PO BID-[facility] Last Admin: 01/13/20 08:10 Dose: Not Given Ferrous Sulfate (Feosol) 325 mg PO QAM-[facility] Last Admin: 01/12/20 09:18 Dose: 325 mg Furosemide (Lasix) 40 mg PO DAILY-AC [facility] Last Admin: 01/12/20 09:18 Dose: 40 mg Ceftriaxone Sodium 1 gm/ (Sodium Chloride) 100 mls @ 200 mls/hr IVPB Q24HR [facility] Last Admin: 01/12/20 09:27 Dose: 100 mls Nicotine (Nicoderm Patch) 14 mg TD Q24HR [facility] Last Admin: 01/13/20 06:04 Dose: 14 mg Nitroglycerin (Nitrostat) 0.4 mg PO Q5MIN PRN PRN Reason: Chest Pain Ondansetron HCl (Zofran Odt) 4 mg PO Q6H PRN PRN Reason: Nausea/Vomiting Ondansetron HCl (Zofran) 4 mg IVP Q6H PRN PRN Reason: Nausea/Vomiting Pantoprazole Sodium (Protonix) 40 mg IVP Q12HR [facility] Last Admin: 01/12/20 20:52 Dose: 40 mg Sodium Chloride (Flush - Normal Saline) 10 ml IVF PRN PRN PRN Reason: Saline Flush Last Admin: 01/12/20 20:52 Dose: 10 ml Sodium Chloride (Normal Saline Pf) 10 ml FS PRN PRN PRN Reason: RECONSTITUTION Last Admin: 01/11/20 20:31 Dose: 10 ml Spironolactone (Aldactone) 100 mg PO QAM-[facility] Last Admin: 01/12/20 09:18 Dose: 100 mg Vital Signs & Weight: Vital Signs Temp Pulse Resp BP Pulse Ox 01/13/20 07:32 98.2 F 82 20 111/68 97 01/13/20 03:30 99.2 F 99 20 112/68 99 Weight 187 lb 1.6 oz - Physical Exam General: alert & oriented x3 HEENT: mucus membranes moist Neck: supple neck Cardiac: regular rate and rhythm, S1/S2 Lungs: clear to auscultation, decreased breath sounds Neuro: cranial nerve 2-12 intact Abdomen: firm, distended Extremities: other: (1-2+ pitting BLE edema) - Labs Result Diagrams: 01/13/20 04:42 01/13/20 04:42 Troponin/CKMB CK-MB (CK-2) 7.6 ng/mL (0-6.6) H* 01/09/20 01:47 Troponin I 1.974 ng/mL (< 0.028) H* 01/09/20 16:53 - Telemetry Sinus rhythms and dysrhythmias: sinus rhythm - Assessment/Plan Assessment/Plan: 1. NSTEMI - Hgb 8.3 today from 7.8 yesterday; still not stable for [facility] since he cannot be in spine position due to severe Ascitis 2. Ascitis - possible u/s guided paracentesis today by Dr Stratton? 3. Anemia - sightly better today 4. Liver coirrhosis with HCV+ 5. Distal esopageal ulcer with s/p electrocautery of visible vessel 6. Tobacco use 7. Heavy ETOH use MAR reviewed Pt. seen and eval. by me. I agree with the A/P by the [employer]. Plan for paracentesis today. When he is stable and the Hgb. stable then I will plan for a cardiac cath. RRR, chest clear anteriorly.
[2020-01-13] MEDS: Pantoprazole 40 MG VIAL IVP SCH ×2 (08:55→20:31)
[2020-01-13] MEDS: Spironolactone 100 MG TAB PO SCH (08:55)
[2020-01-13] MEDS: Furosemide 40 MG TAB PO SCH (08:55)
[2020-01-13] MEDS: Ferrous Sulfate 325 MG TAB PO SCH (08:55)
[2020-01-13] MEDS: cefTRIAXone\\ROCEPHIN 1 GM in Sodium Chloride 0.9% 100 ML IVPB SCH (08:56)
[2020-01-13] MEDS ORDERED: Sodium Bicarbonate 2.5 MEQ/5 ML VIAL ONE (09:51)
[2020-01-13] MEDS ORDERED: Lidocaine 1% PF 5 ML VIAL ONE (09:51)
--- NOTE | 2020-01-13 11:24 | ULT ---
Sonographic guided paracentesis HISTORY: Symptomatic ascites. FINDINGS: After explaining the procedure and answering all questions, sonographic survey showed a lar ge amount of free fluid throughout the abdomen. Sterile technique, buffered local anesthesia, sonographic guidance, and a right lateral approach were used to carefully advance a 19-gauge Yueh needle and catheter into the free fluid. Catheter was left to drain a total volume of 4.0 L clear liquid. Patient was limited to 4 L given kike t he has not previously had a high volume drainage. Catheter was removed with moderate amount of fluid remaining. Patient tolerated the procedure well an d was returned in unchanged condition. IMPRESSION : Technically successful sonographic guided paracentesis. 4 L.
--- NOTE | 2020-01-13 16:38 | PRG ---
DATE OF SERVICE: SUBJECTIVE: Mr. Kathleen feels better after having paracentesis today. He had 4 L removed. He has had no further overt bleeding. OBJECTIVE: VITAL SIGNS: Temperature is 98.2, pulse 88, blood pressure 104/55. GENERAL: He is in no acute distress. Alert and oriented x3. LUNGS: Clear to auscultation bilaterally. HEART: Regular rate and rhythm without murmur. ABDOMEN: Distended with ascites but soft. Bowel sounds are present. EXTREMITIES: 2+ pitting lower extremity edema. LABORATORY DATA: White blood cell count 9.3, hemoglobin 8.3, platelets 146. He did receive 1 unit of blood yesterday. INR 1.5. Creatinine 0.93, bilirubin 1.7, AST 38, ALT 15, alkaline phosphatase 78, and albumin 2.3. IMPRESSION: 1. End-stage liver disease, decompensated. 2. Distal esophageal ulcer with acute hemorrhage, status post electrocautery of a visible vessel. 3. Anemia of acute blood loss. Hemoglobin status post 1 unit yesterday is 8.3. 4. Tense ascites, status post paracentesis with 4 L removed today. 5. Chronic hepatitis C. 6. [id number]-YA-[id number] myocardial infarction. RECOMMENDATIONS: 1. Continue proton pump inhibitor twice daily. This can be changed to oral dosing. 2. Furosemide 40 mg daily and spironolactone 100 mg daily. 3. Ceftriaxone can be stopped after tomorrow. 4. Low-salt diet. 5. Dr. Valentin will round for the GI service tomorrow. Job ID: [id number]
--- NOTE | 2020-01-13 17:30 | EKG ---
Test Reason : C/O CHEST PAIN Blood Pressure : / mmHG Vent. Rate : 089 BPM Atrial Rate : 089 BPM P-R Int : 092 ms QRS Dur : 086 ms QT Int : 394 ms P-R-T Axes : 043 022 -73 degrees QTc Int : 479 ms Sinus rhythm with short NV with Premature supraventricular complexes T wave abnormality, consider inferior ischemia Prolonged QT Abnormal ECG When compared with ECG of 09-JAN-2020 01:22, (Unconfirmed) T wave inversion now evident in Inferior leads Nonspecific T wave abnormality has replaced inverted T waves in Anterior leads QT has lengthened Confirmed by SHARON BAZAN (2) on 01/13/2020 5:29:53 PM Referred By: Confirmed By:SHARON BAZAN
[2020-01-14 05:15] LABS: INR-International Normal Ratio 1.6; PTT 29.5 sec (22.9-36.1); Prothrombin Time 18.7 sec (12.0-14.7)
[2020-01-14 05:16] LABS: ALT (SGPT) 15 U/L (8-55); AST (SGOT) 35 U/L (5-34); Albumin 2.6 g/dL (3.5-5.0); Alkaline Phosphatase 72 U/L (40-110); Anion Gap 11 mmol/L (10-20); BUN (Urea Nitrogen) 14 mg/dL (8.4-25.7); Bilirubin, Total 1.4 mg/dL (0.2-1.2); Calc. Creatinine Clearance 126 mL/min (70-130); Calcium 7.8 mg/dL (7.8-10.44); Carbon Dioxide 23 mmol/L (22-29); Chloride 105 mmol/L (98-107); Estimated GFR-MDRD Greater than 90; Globulin 3.5 g/dL (2.4-3.5); Glucose 100 mg/dL (70-105); Protein, Total 6.1 g/dL (6.0-8.3); Sodium 135 mmol/L (136-145)
[2020-01-14] MEDS: Nicotine 14 MG PATCH TD SCH (05:25)
[2020-01-14 05:52] LABS: Hemoglobin 7.9 g/dL (14.0-18.0); Mean Corpuscular HGB CONC 31.1 g/dL (32.0-36.0); Mean Corpuscular Hemoglobin 25.9 pg (27.0-31.0); Mean Corpuscular Volume 83.3 fL (78.0-98.0); Mean Platelet Volume 10.1 fL (7.4-10.4); Platelet Count 130 thou/uL (130-400); RBC Distribution Width 18.6 % (11.5-14.5); Red Blood Cell (RBC) Count 3.05 mill/uL (4.70-6.10)
--- NOTE | 2020-01-14 05:59 | PDOC.FM ---
- Subjective Subjective: Still has some abdominal pain but improved from yesterday. Able to lay flat comfortably. - Objective MAR Reviewed: Yes Vital Signs & Weight: Vital Signs (12 hours) Temp Pulse Resp BP Pulse Ox 01/14/20 03:38 98.4 F 87 21 H 102/59 L 94 L 01/13/20 23:50 96 103/57 L 01/13/20 23:27 94 L 01/13/20 20:00 98 01/13/20 19:35 98.9 F 84 14 115/64 98 01/13/20 19:04 94 L Weight Weight 84.867 kg I&O: 01/12/20 01/13/20 01/14/20 06:59 06:59 06:59 Intake Total 1330 2180 Output Total 570 924 5126 Balance -400 1030 -1820 Result Diagrams: 01/14/20 03:56 01/14/20 03:56 Phys Exam - Physical Examination Constitutional: NAD HEENT: moist MMs, sclera anicteric Respiratory: no wheezing, no rales, no rhonchi, clear to auscultation bilateral Cardiovascular: RRR, no significant murmur, no rub Gastrointestinal: soft, positive bowel sounds mild diffuse tenderness, moderate distension-improved from yesterday Dx/Plan - Plan Plan: #NSTEMI - CP at rest with SOB, hx of EtOH and tobacco abuse, no PCP - trop stable, elevated - Admission ekg: no ST elevations, T wave inversions in V2 and V3, irregular rhythm - sinus rhythm on telemetry monitoring - Cardiology consulted - Hgb >10 for cath - low dose Coreg-3.125 - plan for cath pending pts ability to lie flat and hgb -stop ASA -consider pRBC transfusion to keep Hbg >8 #Anemia - stable near 8 - s/p 3UpRBC - evidence of acute bleed on EGD s/p cauterization in addition to chronic source of anemia - denies diarrhea, melena, hematochezia #Abdominal Distention - HCV+ with EtOH use - lasix and spironolactone - fluid restrict, strict I/O's - Paracentesis culture negative - GI consult - Endoscopy: 1cm ulcer in distal esophagus (cauterized), hiatal hernia, heme stained stomach, erosive esophagitis - biopsy taken, results pending - PPI BID, abx (rocephin) for SBT prophylaxis - IR performed paracentesis 01/12, removed 4L #EtOH Abuse - ASE protocol - encourage cessation #Tobacco Abuse - nicotine patch - encourage cessation DVT ppx: SCDs IVF: SL Code: full Dispo: LOS>48hours. Addendum - Attending - Attending Attestation Date/Time: 01/14/20 1113 I personally evaluated the patient and discussed the management with Dr. Camarena. I agree with the History, Examination, Assessment and Plan documented above with any addition or exceptions noted below. Patient feeling improved. GI ok with discharge. Awaiting further cardiology recs regarding plans for LHC during this admission or not. He will be transfused 1u today for Hgb goal of 8due to coexisting suspected CAD.
[2020-01-14 06:54] LABS: Band 4 % (5-11); Lymphocytes 37 % (21-51); MDiff Complete? YES; Monocytes 14 % (0-10); Neutrophil 45 % (42-75)
[2020-01-14] MEDS: Ferrous Sulfate 325 MG TAB PO SCH (09:40)
[2020-01-14] MEDS: Spironolactone 100 MG TAB PO SCH (09:40)
[2020-01-14] MEDS: Furosemide 40 MG TAB PO SCH (09:40)
[2020-01-14] MEDS: Carvedilol 3.125 MG TAB PO SCH ×2 (09:40→20:40)
[2020-01-14] MEDS: Pantoprazole 40 MG VIAL IVP SCH (09:41)
--- NOTE | 2020-01-14 09:51 | PDOC.CPN ---
- Subjective Date: 01/14/20 Time: 08:30 Interval history: The pt seen and examined. No overnight events. No cardiac complaints. - Objective Allergies/Adverse Reactions: Allergies Allergy/AdvReac Type Severity Reaction Status Date / Time No Known Allergies Allergy Verified 01/09/20 04:07 Visit Medications: Current Medications Acetaminophen (Tylenol) 650 mg PO Q4H PRN PRN Reason: Headache/Fever/Mild Pain (1-3) Albuterol/Ipratropium (Duoneb) 3 ml NEB [id number] [facility] Last Admin: 01/14/20 06:55 Dose: 3 ml Carvedilol (Coreg) 3.125 mg PO BID [facility] Last Admin: 01/14/20 09:40 Dose: 3.125 mg Ferrous Sulfate (Feosol) 325 mg PO [facility] Last Admin: 01/14/20 09:40 Dose: 325 mg Furosemide (Lasix) 40 mg PO DAILY-AC [facility] Last Admin: 01/14/20 09:40 Dose: 40 mg Ceftriaxone Sodium 1 gm/ (Sodium Chloride) 100 mls @ 200 mls/hr IVPB Q24HR [facility] Last Admin: 01/13/20 08:56 Dose: 100 mls Nicotine (Nicoderm Patch) 14 mg TD Q24HR [facility] Last Admin: 01/14/20 05:25 Dose: 14 mg Nitroglycerin (Nitrostat) 0.4 mg PO Q5MIN PRN PRN Reason: Chest Pain Ondansetron HCl (Zofran Odt) 4 mg PO Q6H PRN PRN Reason: Nausea/Vomiting Ondansetron HCl (Zofran) 4 mg IVP Q6H PRN PRN Reason: Nausea/Vomiting Pantoprazole Sodium (Protonix) 40 mg IVP Q12HR [facility] Last Admin: 01/14/20 09:41 Dose: 40 mg Sodium Chloride (Flush - Normal Saline) 10 ml IVF PRN PRN PRN Reason: Saline Flush Last Admin: 01/12/20 20:52 Dose: 10 ml Sodium Chloride (Normal Saline Pf) 10 ml FS PRN PRN PRN Reason: RECONSTITUTION Last Admin: 01/11/20 20:31 Dose: 10 ml Spironolactone (Aldactone) 100 mg PO [facility] Last Admin: 01/14/20 09:40 Dose: 100 mg Vital Signs & Weight: Vital Signs Temp Pulse Resp BP Pulse Ox 01/14/20 06:52 81 16 98 01/14/20 03:38 98.4 F 87 21 H 102/59 L 94 L 01/13/20 23:50 96 103/57 L 01/13/20 23:27 94 L Weight 187 lb 1.6 oz - Physical Exam General: alert & oriented x3 HEENT: mucus membranes moist Neck: supple neck Cardiac: regular rate and rhythm Lungs: decreased breath sounds Neuro: cranial nerve 2-12 intact Extremities: other: (2+ pitting BLE edema) - Labs Result Diagrams: 01/14/20 03:56 01/14/20 03:56 Troponin/CKMB CK-MB (CK-2) 7.6 ng/mL (0-6.6) H* 01/09/20 01:47 Troponin I 1.974 ng/mL (< 0.028) H* 01/09/20 16:53 - Telemetry Sinus rhythms and dysrhythmias: sinus rhythm - Assessment/Plan Assessment/Plan: 1. NSTEMI - Hgb 7.9 today from 8.3 yesterday; Today, he stated he slept on spine position all night last night without any difficulties. 2. Ascitis with s/p u/s guided paracentesis with 4L output by Dr Stratton on 2019 3. Anemia - sightly lower than yesterday 4. Liver coirrhosis with HCV+ 5. Distal esopageal ulcer with s/p electrocautery of visible vessel in 12/2019 6. Tobacco use and Heavy ETOH use - Per the pt, he quit smoking and ETOH about 2 -3 wks ago; he is willing to cont smoking and ETOH cessation MAR reviewed Pt. seen and eval. by me. I agree with the A/P by the BRIGADIER. He is feeling much better after the paracentesis.Still has ascites and abd. distension but not as tight as before. He denies chest pain. Chest clear. RRR. No edema. As above , still anemic. Not a candidate for cardiac cath at this time. Fortunately he is stable from a cardiac standpoint.
[2020-01-14] MEDS: cefTRIAXone\\ROCEPHIN 1 GM in Sodium Chloride 0.9% 100 ML IVPB SCH (09:54)
--- NOTE | 2020-01-14 18:46 | PRG ---
DATE OF SERVICE: 01/14/2020 SUBJECTIVE: The patient is without complaint today. He is eating well without any nausea or vomiting. There are no signs of bleeding. He denies having any abdominal pain. PHYSICAL EXAMINATION: VITAL SIGNS: Temperature is 98.4, blood pressure 103/64, pulse of 84. GENERAL: He is alert, conversant, oriented. HEENT: Shows anicteric sclerae. NECK: Supple. CVS: Shows normal S1 and S2. Regular rate and rhythm. CHEST: Shows a breath sounds. ABDOMEN: Soft, mildly protuberant, nontender. He has active bowel sounds. EXTREMITIES: Show 1+ edema. LABORATORY DATA: Electrolytes within normal range. Creatinine 0.77, BUN of 14, bilirubin 1.4, AST 35, ALT 15, alkaline phosphatase 72. WBCs 8.0, hemoglobin 7.9, and platelet count of 130. ASSESSMENT: 1. Status post upper gastrointestinal bleed from lower esophageal ulcer, status post cauterization of vessel. No recurrence of bleeding since. 2. End-stage liver disease, evidence of decompensation with ascites. 3. Anemia of acute blood loss, stable at 7.9. 4. Ascites, status post paracentesis. 5. Chronic hepatitis C. 6. Xou-DQ-xpbptvbaw myocardial elevation. RECOMMENDATIONS: 1. We will change pantoprazole to 40 mg p.o. b.i.d. 2. Continue with furosemide 40 mg daily and spironolactone 100 mg daily. 3. Emphasis on salt restriction. 4. Can discontinue ceftriaxone as his peritoneal fluid culture is negative. 5. The patient can be discharged to home from GI standpoint, GI will sign off for now. Job ID: [id number] [facility]
[2020-01-15 04:09] LABS: #Basophils 0.1 thou/uL (0.0-0.2); #Eosinphils 0.2 thou/uL (0.0-0.7); #Lymphocytes 3.8 thou/uL (1.20-3.40); #Monocytes 1.2 thou/uL (0.11-0.59); %Basophils 0.9 % (0.0-1.0); %Lymphocytes 40.9 % (21.0-51.0); %Monocytes 13.1 % (0.0-10.0); %Neutrophils 43.1 % (42.0-75.0); Hemoglobin 9.3 g/dL (14.0-18.0); Mean Corpuscular HGB CONC 31.7 g/dL (32.0-36.0); Mean Corpuscular Hemoglobin 26.9 pg (27.0-31.0); Mean Corpuscular Volume 84.9 fL (78.0-98.0); Mean Platelet Volume 10.7 fL (7.4-10.4); Platelet Count 127 thou/uL (130-400); RBC Distribution Width 18.6 % (11.5-14.5); Red Blood Cell (RBC) Count 3.47 mill/uL (4.70-6.10); White Blood Cell (WBC) Count 9.3 thou/uL (4.8-10.8)
[2020-01-15 04:15] LABS: INR-International Normal Ratio 1.5; PTT 28.1 sec (22.9-36.1)
[2020-01-15 04:30] LABS: ALT (SGPT) 15 U/L (8-55); AST (SGOT) 35 U/L (5-34); Albumin 2.6 g/dL (3.5-5.0); Alkaline Phosphatase 70 U/L (40-110); Anion Gap 11 mmol/L (10-20); BUN (Urea Nitrogen) 15 mg/dL (8.4-25.7); Bilirubin, Total 1.8 mg/dL (0.2-1.2); Calc. Creatinine Clearance 115 mL/min (70-130); Calcium 7.7 mg/dL (7.8-10.44); Carbon Dioxide 22 mmol/L (22-29); Chloride 104 mmol/L (98-107); Estimated GFR-MDRD Greater than 90; Globulin 3.7 g/dL (2.4-3.5); Glucose 92 mg/dL (70-105); Potassium 4.1 mmol/L (3.5-5.1); Protein, Total 6.3 g/dL (6.0-8.3); Sodium 133 mmol/L (136-145)
[2020-01-15] MEDS: Nicotine 14 MG PATCH TD SCH (05:11)
--- NOTE | 2020-01-15 05:45 | PDOC.FM ---
- Subjective Subjective: Patient reports that he is doing well this morning. Still reports mild abdominal pain and leg swelling. Otherwise no acute concerns. - Objective MAR Reviewed: Yes Vital Signs & Weight: Vital Signs (12 hours) Temp Pulse Resp BP Pulse Ox 01/15/20 04:00 97.7 F 60 18 101/59 L 97 01/14/20 23:19 95 01/14/20 20:00 97 01/14/20 19:42 97.7 F 60 16 101/59 L 97 01/14/20 19:30 95 Weight Weight 84.867 kg I&O: 01/13/20 01/14/20 01/15/20 06:59 06:59 06:59 Intake Total 1330 2180 1870 Output Total 300 4000 325 Balance 1030 -1820 1545 Result Diagrams: 01/15/20 03:23 01/15/20 03:23 Phys Exam - Physical Examination Constitutional: NAD HEENT: moist MMs, sclera anicteric Respiratory: no wheezing, no rales, no rhonchi, clear to auscultation bilateral Cardiovascular: RRR, no significant murmur, no rub Gastrointestinal: soft, positive bowel sounds moderate distension, diffuse mild TTP 2+ pitting edema Neurological: non-focal, moves all 4 limbs Skin: no rash, normal turgor Dx/Plan - Plan Plan: #NSTEMI - CP at rest with SOB, hx of EtOH and tobacco abuse, no PCP - trop stable, elevated - Admission ekg: no ST elevations, T wave inversions in V2 and V3, irregular rhythm - sinus rhythm on telemetry monitoring - Cardiology consulted - Hgb >10 for cath - low dose Coreg-3.125 - No plans for cath during admission -stop ASA -consider pRBC transfusion to keep Hbg >8 #Anemia - stable near 8 - s/p 3UpRBC - evidence of acute bleed on EGD s/p cauterization in addition to chronic source of anemia - denies diarrhea, melena, hematochezia #Abdominal Distention - HCV+ with EtOH use - lasix and spironolactone - fluid restrict, strict I/O's - Paracentesis culture negative - GI consult - Endoscopy: 1cm ulcer in distal esophagus (cauterized), hiatal hernia, heme stained stomach, erosive esophagitis - biopsy taken, results pending - PPI BID - IR performed paracentesis 01/12, removed 4L #EtOH Abuse - ASE protocol - encourage cessation #Tobacco Abuse - nicotine patch - encourage cessation DVT ppx: SCDs IVF: SL Code: full Dispo: Likely discharge today Addendum - Attending - Attending Attestation Date/Time: 01/15/20 4128 I personally evaluated the patient and discussed the management with Dr. Camarena. I agree with the History, Examination, Assessment and Plan documented above with any addition or exceptions noted below. Patient feels well. No plans for LHC per Cardiology. GI has signed off. Stable for discharge and further mgmt in outpatient setting.
[2020-01-15] MEDS: Carvedilol 3.125 MG TAB PO SCH (08:55)
[2020-01-15] MEDS: Spironolactone 100 MG TAB PO SCH (08:55)
[2020-01-15] MEDS: Ferrous Sulfate 325 MG TAB PO SCH (08:55)
[2020-01-15] MEDS: Furosemide 40 MG TAB PO SCH (08:55)
[2020-01-15 11:48] VITALS: TEMP 97.6
--- NOTE | 2020-01-15 12:22 | PDOC.BPN ---
- Brief Progress Note Patient not being discharged on DAPT and Statin because of GI bleed and significant Liver disease, respectively.
[2020-01-15 16:08] VITALS: BP 115/65
--- NOTE | 2020-01-16 04:10 | DIS ---
DATE OF ADMISSION: 01/09/2020 DATE OF DISCHARGE: 01/15/2020 ADMITTING ATTENDING: Choco Merchant MD DISCHARGE ATTENDING: Greg Amato MD CONSULTS: Cardiology was Dr. Degroot and GI was Dr. Stratton. PROCEDURES: The patient had an echocardiogram showing ejection fraction of 55% to 60% with left atrial dilation and mild mitral and tricuspid regurgitation. The patient also underwent an EGD showing an ulcer with active bleeding that was cauterized. Esophageal biopsy showed esophagitis with ulcer. No glandular mucosa and no Decker's esophagus. PRIMARY DIAGNOSIS: Hav-NC-yptpyzbuu myocardial infarction. SECONDARY DIAGNOSES: Anemia, cirrhosis, hepatitis C infection, alcohol abuse, and tobacco abuse. DISCHARGE MEDICATIONS: 1. Coreg 3.125 mg p.o. b.i.d. 2. Ferrous sulfate 325 mg p.o. daily. 3. Furosemide 40 mg p.o. daily. 4. Nicotine patch 14 mg transdermally daily. 5. Nitroglycerin 0.4 mg tablet p.o. q.5 minutes p.r.n. 6. Pantoprazole 40 mg p.o. b.i.d. 7. Spironolactone 100 mg p.o. daily. DISCONTINUED MEDICATIONS: None. HPI/HOSPITAL COURSE: The patient is a 60-year-old male with a history of alcohol and tobacco abuse, who presented to the ED with chest pain. He stated that the patient had been going on for approximately 4 hours described as it is like a brick on his chest and was located in the center of his chest and radiated to his arms. It started at rest and was relieved by the nitroglycerin paste given in the ambulance. Chest pain was associated with nausea and shortness of breath. He had one episode of similar pain a couple weeks ago, but does not have a PCP and had not been to a doctor in years. He also complains of abdominal distention that has gotten worse over the past month. He currently smokes 1/3 pack per day. Has smoked since the age of 16 and drinks 4 to 6 beers a day for about the past 2 months. Before that, he drank approximately 12 beers a day. The patient was admitted to the hospital with diagnosis of NSTEMI after elevation of troponin. He was also found to be anemic and given 4 units of packed red blood cells over the course of his hospital stay. Cardiology did not want to cath the patient upon admission due to his low hemoglobin and the patient's inability to tolerate lying flat with abdominal distention. The patient was evaluated by GI given his presumed ascites and low hemoglobin. The patient's stool occult blood was negative, however, GI elected to scope the patient to an EGD. On EGD, findings as above. The patient was also found to be hep C positive during admission. The patient received hepatitis B vaccine , but did not receive hepatitis A vaccine due to shortage in the hospital. The patient had an ultrasound-guided paracentesis done by Interventional Radiology, which removed 4 L of fluid. The patient reported that this improved his symptoms; however, he still had a significant amount of ascites. By the end of his hospital stay, Cardiology was not interested in doing a left heart catheterization at this time. Of note, the patient was diagnosed with NSTEMI on admission due to increase in troponins. The patient was not discharged on a statin or dual anti-platelet therapy given his history of liver disease and GI bleed. The patient had no previous primary care and will need followup. The patient will likely need followup with GI for hepatitis C treatment and Cardiology follow up to determine the willingness to do a heart catheterization. Patient will need hepatitis A vaccine. DISPOSITION: Stable. DISCHARGE INSTRUCTIONS: Location: Home. Diet: Heart healthy. Activity: As tolerated. Followup: Follow up with PCP within 2 weeks and follow up with Cardiology within 2 to 3 weeks and follow up with GI within 1 month. Job ID: [id number] [id number]
== END 2020-01-15 15:10 | disposition home or self-care (01) | DRG 432 ==
LOC: ERS 01:15 → 2NO 02:39
PROVIDERS: ADMIT Family Medicine; ATTEND Family Medicine
PROC: 0W9G3ZX Drainage of Peritoneal Cavity, Percutaneous Approach, Diagnostic (ICD-10-PCS; 2020-01-09)
PROC: 30233N1 Transfusion of Nonautologous Red Blood Cells into Peripheral Vein, Percutaneous Approach (ICD-10-PCS; 2020-01-09)
PROC: 0W3P8ZZ Control Bleeding in Gastrointestinal Tract, Via Natural or Artificial Opening Endoscopic (ICD-10-PCS; principal; 2020-01-10)
PROC: 0DB58ZX Excision of Esophagus, Via Natural or Artificial Opening Endoscopic, Diagnostic (ICD-10-PCS; 2020-01-10)
PROC: 0W9G3ZZ Drainage of Peritoneal Cavity, Percutaneous Approach (ICD-10-PCS; 2020-01-13)
DX: K70.31 Alcoholic cirrhosis of liver with ascites (principal); I21.4 Non-ST elevation (NSTEMI) myocardial infarction; K22.11 Ulcer of esophagus with bleeding; D62 Acute posthemorrhagic anemia; Z20.828 Contact with and (suspected) exposure to other viral communicable diseases; F10.10 Alcohol abuse, uncomplicated; F17.210 Nicotine dependence, cigarettes, uncomplicated; D63.8 Anemia in other chronic diseases classified elsewhere; D50.9 Iron deficiency anemia, unspecified; B18.2 Chronic viral hepatitis C; I08.1 Rheumatic disorders of both mitral and tricuspid valves; Y90.0 Blood alcohol level of less than 20 mg/100 ml; K72.90 Hepatic failure, unspecified without coma; K44.9 Diaphragmatic hernia without obstruction or gangrene; Z71.6 Tobacco abuse counseling; Z71.41 Alcohol abuse counseling and surveillance of alcoholic; Z79.82 Long term (current) use of aspirin; Z79.899 Other long term (current) drug therapy
CPT/HCPCS: 36415; 36430; 49083; 71045; 71046; 80053; 80061; 80074; 80307; 82042; 82105; 82140; 82274; 82550; 82553; 82607; 82728; 82747; 82977; 83036; 83540; 83550; 83690; 83880; 84157; 84484; 85025; 85046; 85060; 85610; 85730; 86706; 86708; 86780; 86850; 86900; 86901; 87070; 87205; 87389; 87522; 87635; 88305; 88312; 88313; 89051; 90744; 90746; 93005; 93010; 93306; 93798; 93975; 94640; 94760; C9113; J0696; J2704; J3490; J7620; P9016; P9047; U0003